=== PATIENT | male | born 1990 | race Caucasian/White ===

== ENCOUNTER 2018-04-30 23:38 | Emergency (ER) | payer SELFPAY ==
[~2018-04-30] VITALS: Ht 180.3 cm; Wt 80.0 kg
[2018-04-30 23:41] VITALS: BP 150/93
== END 2018-05-01 00:53 | disposition home or self-care (01) ==
LOC: ED 05-01 00:29
DX: S93.621A Sprain of tarsometatarsal ligament of right foot, initial encounter (principal); S93.491A Sprain of other ligament of right ankle, initial encounter; W19.XXXA Unspecified fall, initial encounter; Y93.89 Activity, other specified; Y92.89 Other specified places as the place of occurrence of the external cause; Y99.8 Other external cause status; F32.9 Major depressive disorder, single episode, unspecified
CPT/HCPCS: 29515; 99284